=== PATIENT | female | born 2000 | race African-American/Black ===

== ENCOUNTER 2018-01-12 00:06 | Inpatient (IN) ==
[2018-01-12] MEDS ORDERED: ONDANSETRON 4 MG/2 ML VIAL IV PRN ×2 (00:25→18:17)
[2018-01-12] MEDS ORDERED: BUTORPHANOL 2 MG/ML VIAL IV PRN (00:25)
[2018-01-12 00:56] LABS: Basophils % 0.5 % (0.0-0.8); Eosinophils # 0.1 10*3/uL (0.0-0.87); Eosinophils % 1.4 % (0.00-10.9); Hematocrit 35.3 VOL% (35.7-47.0); Hemoglobin 11.7 GM/DL (12.0-16.0); Immature Granulocytes % 1.7 %; Immature Granulocytes Absolute 0.15 #; Lymphocytes # 1.5 10*3/uL (1.4-4.0); Lymphocytes % 16.5 % (21.3-54.2); Mean Corpuscular HGB Conc 33.1 GM/DL (32-36); Mean Corpuscular Hemoglobin 29 PG (27-34); Monocytes # 0.9 10*3/uL (0.11-0.8); Monocytes % 9.7 % (1.7-12.7); NRBC # 0.02 10*3/uL; Neutrophils # 6.2 10*3/uL (1.4-7.4); Neutrophils % 70.2 % (38.7-73.9); Platelet Count 142 T/CUMM (130-400); Red Blood Count 4.01 MC/CUMM (3.8-5.5); White Blood Count 8.9 T/CUMM (4-12)
[2018-01-12 01:20] LABS: Alanine Aminotransferase 17 U/L (13-56); Alkaline Phosphatase 215 U/L (45-117); Aspartate Amino Transferase 13 U/L (0-37); Bilirubin,Total < 0.39 MG/DL (0.2-1.0); Blood Urea Nitrogen 8 MG/DL (7-18); Calcium 8.4 MG/DL (8.5-10.1); Glucose 81 MG/DL (74-106); Osmolality,Calculated 273.5 MOS/KG (273-304); Potassium 3.6 MMOL/L (3.5-5.1); Sodium 139 MMOL/L (136-145); Total Protein 6.9 G/DL (6.4-8.3)
[2018-01-12] MEDS: AMPICILLIN INJ 2,000 MG in SODIUM CHLORIDE 0.9% 100 ML IV SCH ×3 (01:37→13:29)
[2018-01-12] MEDS: LACTATED RINGERS 1,000 ML IV SCH ×3 (05:36→13:21)
[2018-01-12] MEDS ORDERED: diphenhydrAMINE 50 MG/1 ML VIAL IV PRN ×2 (11:18)
[2018-01-12] MEDS ORDERED: LACTATED RINGERS 250 ML IV PRN (11:18)
[2018-01-12] MEDS ORDERED: FAMOTIDINE 20 MG/2 ML VIAL IV ONE (11:18)
[2018-01-12] MEDS ORDERED: PROMETHAZINE 25 MG/1 ML VIAL IM ONE (11:18)
[2018-01-12] MEDS ORDERED: ePHEDrine 50 MG/ML AMP IV PRN (11:18)
[2018-01-12] MEDS ORDERED: LACTATED RINGERS 1,000 ML IV ONE (11:18)
[2018-01-12] MEDS ORDERED: hydrOXYzine HCL 25 MG/1 ML VIAL IM PRN (11:18)
[2018-01-12] MEDS ORDERED: CITRIC ACID/SODIUM CITRATE 30 ML UDCUP PO ONE (11:18)
[2018-01-12] MEDS ORDERED: fentaNYL 2 MCG/ROPIV 0.2% EPID 150 ML EPIDURAL SCH (11:30)
[2018-01-12 13:59] LABS: Apearance,Urine CLEAR (Clear); Bilirubin,Urine Negative (Negative); Blood, Urine Negative (Negative); Glucose,Urine (UA) Negative (Negative); Hyaline Casts,Urine 1 /LPF (0-3); Ketones,Urine Negative (Negative); Nitrite,Urine Negative (Negative); Protein,Urine Negative; RBC,Urine <1 /HPF (0-4); Squamous Epithelial Cell,Urine Occasional /HPF (0-10); Urine Color Yellow (Yellow); Urine Specific Gravity 1.016 (1.001-1.035); Urine Urobilinogen < 2.0 EU/DL (0.2-1.0); WBC,Urine 1 /HPF (0-6)
[2018-01-12] MEDS ORDERED: OXYTOCIN/LR 20 UNIT/1,000 ML BAG IV SCH (15:30)
[2018-01-12] MEDS ORDERED: TERBUTALINE 1 MG/1 ML VIAL SUBCUT PRN (16:25)
[2018-01-12] MEDS ORDERED: TERBUTALINE 1 MG/1 ML VIAL SUBCUT ONE (16:35)
[2018-01-12 18:15] LABS: Cord Arterial Blood HCO3 24.5 MMOL/L
[2018-01-12 18:17] LABS: Cord Venous Blood HCO3 22.9 MMOL/L; Cord Venous Blood PCO2 42.7 MMHG; Cord Venous Blood PO2 26.7 MMHG
[2018-01-12] MEDS ORDERED: DIPH/TET/ACEL PERT BOOSTER VACCINE 0.5 ML VIAL IM ONE (18:17)
[2018-01-12] MEDS ORDERED: MEASLES/MUMPS/RUBELLA VACCINE 0.5 ML VIAL SUBCUT ONE (18:17)
[2018-01-12] MEDS ORDERED: WITCH HAZEL PADS 100/JAR TOP PRN (18:17)
[2018-01-12] MEDS ORDERED: BISACODYL 10 MG SUPP RECTAL PRN (18:17)
[2018-01-12] MEDS ORDERED: ACETAMINOPHEN 325 MG TABLET PO PRN (18:17)
[2018-01-12] MEDS ORDERED: BENZOCAINE 20%/MENTHOL 0.5% SPRAY 56 GM CAN TOP PRN (18:17)
[2018-01-12] MEDS ORDERED: oxyCODONE/ACETAMINOPHEN 5-325 MG TABLET PO PRN ×2 (18:17)
[2018-01-12] MEDS ORDERED: OXYTOCIN/LR 20 UNIT/1,000 ML BAG IV ONE (18:17)
[2018-01-12] MEDS ORDERED: RHO(D) IMMUNE GLOBULIN 300 MCG SYRINGE IM ONE (18:17)
[2018-01-12] MEDS ORDERED: HYDROCORTISONE 2.5% RECTAL CREAM 30 GM TUBE TOP PRN (18:17)
[2018-01-12] MEDS ORDERED: LANOLIN 50% CREAM 0.3 OZ TUBE TOP PRN (18:17)
[2018-01-12] MEDS: IBUPROFEN 800 MG TABLET PO PRN (22:39)
[2018-01-13] MEDS: DOCUSATE SODIUM 100 MG CAPSULE PO SCH ×3 (01:01→20:29)
[2018-01-13 06:41] LABS: Basophils % 0.1 % (0.0-0.8); Eosinophils # 0.1 10*3/uL (0.0-0.87); Eosinophils % 0.6 % (0.00-10.9); Hematocrit 30.7 VOL% (35.7-47.0); Hemoglobin 10.2 GM/DL (12.0-16.0); Immature Granulocytes % 0.6 %; Lymphocytes # 1.3 10*3/uL (1.4-4.0); Lymphocytes % 7.8 % (21.3-54.2); Mean Corpuscular HGB Conc 33.2 GM/DL (32-36); Mean Corpuscular Hemoglobin 29 PG (27-34); Mean Corpuscular Volume 88.5 FL (87-102); Monocytes # 1.3 10*3/uL (0.11-0.8); Neutrophils # 13.5 10*3/uL (1.4-7.4); Neutrophils % 82.9 % (38.7-73.9); Platelet Count 118 T/CUMM (130-400); Red Blood Count 3.47 MC/CUMM (3.8-5.5); Red Cell Distribution Width 13.1 % (9.3-17.3); White Blood Count 16.3 T/CUMM (4-12)
[2018-01-13] MEDS: IBUPROFEN 800 MG TABLET PO PRN (17:41)
[2018-01-14 07:47] VITALS: BP 108/75
[2018-01-14] MEDS: DOCUSATE SODIUM 100 MG CAPSULE PO SCH (10:03)
== END 2018-01-14 14:15 | disposition home or self-care (01) | DRG 560 ==
LOC: N.LDOUT 00:06 → N.LD 00:11 → N.OB 22:00
PROVIDERS: ADMIT Obstetrics & Gynecology; ATTEND Obstetrics & Gynecology

== ENCOUNTER 2020-12-30 04:09 | Inpatient (IN) ==
[2020-12-30] MEDS ORDERED: ONDANSETRON 4 MG/2 ML VIAL IV PRN ×2 (04:20→09:21)
[2020-12-30] MEDS ORDERED: LACTATED RINGERS 1,000 ML IV ONE (04:20)
[2020-12-30] MEDS ORDERED: BUTORPHANOL 2 MG/ML VIAL IV PRN (04:20)
[2020-12-30] MEDS ORDERED: OXYTOCIN/LR 20 UNIT/1,000 ML BAG IV SCH (04:30)
[2020-12-30] MEDS: LACTATED RINGERS 1,000 ML IV SCH ×3 (05:00→11:05)
[2020-12-30 05:06] LABS: Basophils % 0.2 % (0.0-0.8); Eosinophils # 0.2 10*3/uL (0.0-0.87); Eosinophils % 2.1 % (0.00-10.9); Hematocrit 36.1 VOL% (35.7-47.0); Hemoglobin 11.7 GM/DL (12.0-16.0); Immature Granulocytes % 0.7 %; Immature Granulocytes Absolute 0.07 #; Lymphocytes % 20.9 % (21.3-54.2); Mean Corpuscular HGB Conc 32.4 GM/DL (32-36); Mean Corpuscular Volume 91.6 FL (87-102); Monocytes % 9.3 % (1.7-12.7); Neutrophils % 66.8 % (38.7-73.9); Platelet Count 173 T/CUMM (130-400); Red Blood Count 3.94 MC/CUMM (3.8-5.5); Red Cell Distribution Width 14.4 % (9.3-17.3); White Blood Count 9.6 T/CUMM (4-12)
[2020-12-30 05:11] LABS: Bilirubin,Urine Negative (Negative); Blood, Urine Negative (Negative); Glucose,Urine (UA) Negative (Negative); Ketones,Urine Negative (Negative); Mucus,Urine Occasional /LPF (Occasional); Nitrite,Urine Negative (Negative); Protein,Urine 30 MG/DL; RBC,Urine 1 /HPF (0-4); Squamous Epithelial Cell,Urine Occasional /HPF (0-10); Urine Appearance CLEAR (Clear); Urine Color Yellow (Yellow); Urine Specific Gravity 1.009 (1.001-1.035); Urine Urobilinogen < 2.0 EU/DL (0.2-1.0)
[2020-12-30 05:33] LABS: Alanine Aminotransferase 15 U/L (13-56); Albumin 2.8 G/DL (3.4-5.0); Alkaline Phosphatase 144 U/L (45-117); Aspartate Amino Transferase 18 U/L (0-37); Bilirubin,Total < 0.39 MG/DL (0.20-1.00); Blood Urea Nitrogen 7 MG/DL (7-18); Calcium 8.8 MG/DL (8.5-10.1); Carbon Dioxide 24 MMOL/L (21-32); Estimated Glom Filtration Rate 165 ML/MIN; Glucose 74 MG/DL (74-106); Potassium 3.8 MMOL/L (3.5-5.1); Sodium 136 MMOL/L (136-145); Total Protein 6.7 G/DL (6.4-8.2)
[2020-12-30 06:06] LABS: Anisocytosis 1+; Macrocytosis Slight; Platelet Estimate Normal
[2020-12-30] MEDS ORDERED: CITRIC ACID/SODIUM CITRATE 30 ML UDCUP PO ONE (09:21)
[2020-12-30] MEDS ORDERED: NALOXONE 0.4 MG/ML VIAL IV PRN (09:21)
[2020-12-30] MEDS ORDERED: diphenhydrAMINE 50 MG/1 ML VIAL IV PRN (09:21)
[2020-12-30] MEDS ORDERED: FAMOTIDINE 20 MG/2 ML VIAL IV ONE (09:21)
[2020-12-30] MEDS ORDERED: ePHEDrine 50 MG/ML VIAL IV PRN (09:21)
[2020-12-30] MEDS ORDERED: PROMETHAZINE 25 MG/1 ML VIAL IM PRN (09:21)
[2020-12-30] MEDS ORDERED: fentaNYL 2 MCG/ROPIV 0.2% EPID 100 ML EPIDURAL SCH (09:30)
[2020-12-30 12:24] LABS: Bilirubin,Urine Negative (Negative); Blood, Urine Negative (Negative); Glucose,Urine (UA) Negative (Negative); Ketones,Urine Negative (Negative); Nitrite,Urine Negative (Negative); Protein,Urine Negative; RBC,Urine <1 /HPF (0-4); Urine Appearance CLEAR (Clear); Urine Color Straw (Yellow); Urine Specific Gravity 1.006 (1.001-1.035); Urine Urobilinogen < 2.0 EU/DL (0.2-1.0)
[2020-12-30] MEDS ORDERED: miSOPROStoL 200 MCG TABLET ONE (13:56)
[2020-12-30] MEDS ORDERED: CARBOPROST TROMETHAMINE 250 MCG/ML AMP IM ONE (13:57)
[2020-12-30 14:40] LABS: Cord Arterial Blood HCO3 20.8 MMOL/L
[2020-12-30 14:44] LABS: Cord Venous Blood HCO3 21.1 MMOL/L; Cord Venous Blood PCO2 56.7 MMHG; Cord Venous Blood PO2 19.9
[2020-12-30] MEDS ORDERED: MEASLES/MUMPS/RUBELLA VACCINE 0.5 ML VIAL SUBCUT ONE (16:01)
[2020-12-30] MEDS ORDERED: RHO(D) IMMUNE GLOBULIN 300 MCG SYRINGE IM ONE (16:01)
[2020-12-30] MEDS ORDERED: HYDROCORTISONE 2.5% RECTAL CREAM 30 GM TUBE TOP PRN (16:01)
[2020-12-30] MEDS ORDERED: OXYTOCIN/LR 20 UNIT/1,000 ML BAG IV ONE (16:01)
[2020-12-30] MEDS ORDERED: LANOLIN 50% CREAM 0.3 OZ TUBE TOP PRN (16:01)
[2020-12-30] MEDS ORDERED: oxyCODONE/ACETAMINOPHEN 5-325 MG TABLET PO PRN ×2 (16:01)
[2020-12-30] MEDS ORDERED: BENZOCAINE 20%/MENTHOL 0.5% SPRAY 56 GM CAN TOP PRN (16:01)
[2020-12-30] MEDS ORDERED: BISACODYL 10 MG SUPP RECTAL PRN (16:01)
[2020-12-30] MEDS ORDERED: WITCH HAZEL PADS 100/JAR TOP PRN (16:01)
[2020-12-30] MEDS ORDERED: ACETAMINOPHEN 325 MG TABLET PO PRN (16:01)
[2020-12-30] MEDS ORDERED: DIPH/TET/ACEL PERT BOOSTER VACCINE 0.5 ML VIAL IM ONE (16:01)
[2020-12-30] MEDS: DOCUSATE SODIUM 100 MG CAPSULE PO SCH (21:37)
[2020-12-31] MEDS: IBUPROFEN 800 MG TABLET PO PRN (06:12)
[2020-12-31 06:15] LABS: Basophils % 0.2 % (0.0-0.8); Eosinophils # 0.1 10*3/uL (0.0-0.87); Hematocrit 32.6 VOL% (35.7-47.0); Hemoglobin 10.8 GM/DL (12.0-16.0); Immature Granulocytes % 0.5 %; Immature Granulocytes Absolute 0.06 #; Lymphocytes # 1.8 10*3/uL (1.4-4.0); Lymphocytes % 14.7 % (21.3-54.2); Mean Corpuscular HGB Conc 33.1 GM/DL (32-36); Mean Corpuscular Volume 90.1 FL (87-102); Mean Platelet Volume 13.4 FL (9.6-12.0); Monocytes % 9.2 % (1.7-12.7); Neutrophils % 74.4 % (38.7-73.9); Platelet Count 159 T/CUMM (130-400); Red Blood Count 3.62 MC/CUMM (3.8-5.5); Red Cell Distribution Width 14.5 % (9.3-17.3); White Blood Count 12.5 T/CUMM (4-12)
[2020-12-31 06:33] LABS: Platelet Estimate Normal
[2020-12-31 06:34] LABS: Anisocytosis Slight
[2020-12-31] MEDS: DOCUSATE SODIUM 100 MG CAPSULE PO SCH ×2 (12:30→21:37)
[2021-01-01] MEDS: IBUPROFEN 800 MG TABLET PO PRN (06:17)
[2021-01-01] MEDS: DOCUSATE SODIUM 100 MG CAPSULE PO SCH (08:45)
[2021-01-01 09:57] VITALS: BP 106/53
== END 2021-01-01 16:00 | disposition home or self-care (01) | DRG 560 ==
LOC: N.LD 04:09 → N.OB 16:15
PROVIDERS: ADMIT Obstetrics & Gynecology; ATTEND Obstetrics & Gynecology